=== PATIENT | female | born 1990 | race Caucasian/White ===

== ENCOUNTER 2022-04-10 07:41 | Inpatient (IN) | payer OTHER ==
[~2022-04-10] VITALS: Ht 160 cm; Wt 88.0 kg
== END 2022-04-12 13:17 | disposition home or self-care (01) | DRG 807 ==
LOC: LDR 07:41 → OB/GYN 11:01
PROVIDERS: ADMIT Obstetrics & Gynecology; ATTEND Obstetrics & Gynecology
PROC: 10E0XZZ Delivery of Products of Conception, External Approach (ICD-10-PCS; principal; 2022-04-10)
PROC: 0KQM0ZZ Repair Perineum Muscle, Open Approach (ICD-10-PCS; 2022-04-10)
PROC: 4A1HXCZ Monitoring of Products of Conception, Cardiac Rate, External Approach (ICD-10-PCS; 2022-04-10)
PROC: 0UQG7ZZ Repair Vagina, Via Natural or Artificial Opening (ICD-10-PCS; 2022-04-10)
DX: O70.1 Second degree perineal laceration during delivery (principal); Z37.0 Single live birth; Z3A.38 38 weeks gestation of pregnancy; Z20.822 Contact with and (suspected) exposure to COVID-19

== ENCOUNTER 2023-10-29 10:07 | Inpatient (IN) | payer OTHER ==
[~2023-10-29] VITALS: Ht 160 cm; Wt 87.5 kg
[2023-10-29] MEDS ORDERED: IRON325 MG PO (11:00)
[2023-10-29 12:08] LABS: ALBUMIN 2.6 gm/dL (3.4-5.0); BILIRUBIN TOTAL 0.46 mg/dL (0.3-1.2); CALCIUM 8.3 mg/dL (8.5-10.1); CREATININE SERUM 0.54 mg/dL (0.55-1.02); GFR 129.23; GLOBULINA 3.5 G/DL (2.4-3.5); POTASSIUM 4.28 mEq/L (3.5-5.1); TOTAL PROTEIN 6.1 gm/dL (6.4-8.2)
[2023-10-29 12:09] LABS: HEMATOCRIT 27.7 % (36.0-45.00); INR < 0.93; MEAN CELL VOLUME 76.6 fL (80.00-100.00); MEAN CORPUSCULAR HGB CONC 32.3 g/dl (32.0-36.0); PARTIAL THROMBOPLASTIN TIME 23.6 SECONDS (22.0-34.0); PROTHROMBIN TIME 9.8 SECONDS (9.0-11.5); RED BLOOD COUNT 3.61 M/uL (4.00-6.00)
[2023-10-29 12:15] LABS: HEMOGLOBIN 8.9 g/dL (12.0-15.00); MEAN CORPUSCULAR HEMOGLOBIN 24.6 pg (27.00-32.0)
[2023-10-29 12:16] LABS: PLATELET COUNT 128 K/uL (150-450)
[2023-10-29 12:17] LABS: RED CELL DISTRIBUTION WIDTH 17.5 % (11.5-14.5)
[2023-10-29 13:04] LABS: PH,URINE 6.5 (5.0-8.0); URINE APPEARANCE Clear; URINE BILIRRUBIN Negative (NEGATIVE); URINE BLOOD Trace; URINE COLOR Yellow; URINE EPITHELIAL CELLS 66.7 uL (0.0-38.8); URINE GLUCOSE Negative (NEGATIVE); URINE LEUKOCYTE Moderate; URINE NITRATE Negative; URINE PROTEIN Negative (NEGATIVE); URINE RBC 6.6 uL (0.0-20.8); URINE WBC 50.4 uL (0.0-23.2)
[2023-10-29 14:35] LABS: ABG PH 7.399 (7.35-7.45); ABG pCO2 33.5 mmHg (35-45)
[2023-10-29 14:36] LABS: ABG PO2 23.9 mmHg (80-100); BASE EXCESS 55.9 mmol/l; BICARBONATE -3.6 mmol/l (23-25); SaO2 29.9 %; Tco2 20.5 mmol/l; o2 21 %
[2023-10-29 18:44] LABS: HEMATOCRIT 26.1 % (36.0-45.00); HEMOGLOBIN 8.4 g/dL (12.0-15.00); MEAN CELL VOLUME 76.8 fL (80.00-100.00); MEAN CORPUSCULAR HEMOGLOBIN 24.7 pg (27.00-32.0); MEAN CORPUSCULAR HGB CONC 32.3 g/dl (32.0-36.0); PLATELET COUNT 138 K/uL (150-450); RED BLOOD COUNT 3.39 M/uL (4.00-6.00)
== END 2023-10-31 13:18 | disposition home or self-care (01) | DRG 807 ==
LOC: LDR 10:07 → OB/GYN 10:07
PROVIDERS: ADMIT Obstetrics & Gynecology; ATTEND Obstetrics & Gynecology
PROC: 10E0XZZ Delivery of Products of Conception, External Approach (ICD-10-PCS; principal; 2023-10-29)
PROC: 0KQM0ZZ Repair Perineum Muscle, Open Approach (ICD-10-PCS; 2023-10-29)
PROC: 4A1HXCZ Monitoring of Products of Conception, Cardiac Rate, External Approach (ICD-10-PCS; 2023-10-29)
DX: O70.1 Second degree perineal laceration during delivery (principal); Z37.0 Single live birth; Z3A.37 37 weeks gestation of pregnancy; Z20.822 Contact with and (suspected) exposure to COVID-19

== ENCOUNTER 2023-12-17 06:00 | Day surgery (SDC) | payer OTHER ==
[2023-12-15 11:26] LABS: HEMATOCRIT 36.8 % (36.0-45.00); HEMOGLOBIN 11.9 g/dL (12.0-15.00); MEAN CELL VOLUME 80.1 fL (80.00-100.00); MEAN CORPUSCULAR HEMOGLOBIN 25.9 pg (27.00-32.0); MEAN CORPUSCULAR HGB CONC 32.3 g/dl (32.0-36.0); PLATELET COUNT 181 K/uL (150-450); RED CELL DISTRIBUTION WIDTH 24.5 % (11.5-14.5)
[2023-12-15 11:31] LABS: URINE APPEARANCE Clear; URINE BILIRRUBIN Negative (NEGATIVE); URINE BLOOD Large; URINE COLOR Yellow; URINE GLUCOSE Negative (NEGATIVE); URINE LEUKOCYTE Trace; URINE NITRATE Negative; URINE PROTEIN Negative (NEGATIVE); URINE UROBILINOGEN 0.2 E.U./dl
[2023-12-15 11:37] LABS: URINE BACTERIA 75.6 uL (0.0-1933); URINE RBC 610.6 uL (0.0-20.8); URINE WBC 70.9 uL (0.0-23.2)
[2023-12-15 11:43] LABS: INR 0.99; PARTIAL THROMBOPLASTIN TIME 27.1 SECONDS (22.0-34.0); PROTHROMBIN TIME 10.4 SECONDS (9.0-11.5)
[2023-12-15 11:58] LABS: ALBUMIN 3.8 gm/dL (3.4-5.0); BILIRUBIN TOTAL 0.44 mg/dL (0.3-1.2); CALCIUM 9.2 mg/dL (8.5-10.1); CREATININE SERUM 0.74 mg/dL (0.55-1.02); GFR 89.84; GLOBULINA 3.5 G/DL (2.4-3.5); POTASSIUM 4.78 mEq/L (3.5-5.1); TOTAL PROTEIN 7.3 gm/dL (6.4-8.2); TSH 0.642 uIU/mL (0.358-3.74)
[~2023-12-17 06:00] MED LIST: IRON325 MG PO
[2023-12-17] MEDS ORDERED: POVIDONE-IODINE 118 ML BOTT TOP ONE ×2 (10:18→11:30)
[2023-12-17] MEDS ORDERED: IBU800 MG PO (11:55)
[2023-12-17] MEDS ORDERED: PERCOCET 5-3251 EACH PO (11:55)
[2023-12-17] MEDS ORDERED: GAS RELIEF80 MG PO (11:55)
[2023-12-17] MEDS ORDERED: COLACE100 MG PO (11:55)
== END 2023-12-17 15:15 | disposition home or self-care (01) ==
LOC: CIR.AMB 06:00
PROVIDERS: ATTEND Student in an Organized Health Care Education/Training Program
DX: Z30.2 Encounter for sterilization (principal); N83.8 Other noninflammatory disorders of ovary, fallopian tube and broad ligament; Z64.1 Problems related to multiparity; I10 Essential (primary) hypertension